=== PATIENT | male | born 1960 | race Two or more races ===

== ENCOUNTER 2019-04-24 13:08 | Emergency (ER) | payer OTHER ==
[~2019-04-24] VITALS: Ht 182.9 cm; Wt 108.9 kg
[2019-04-24 13:39] VITALS: BP 141/77
== END 2019-04-24 18:16 | disposition left against medical advice (07) ==
LOC: ER 13:14
DX: T82.524A Displacement of infusion catheter, initial encounter (principal); R78.81 Bacteremia; M00.9 Pyogenic arthritis, unspecified; Z79.2 Long term (current) use of antibiotics; Z53.29 Procedure and treatment not carried out because of patient's decision for other reasons; Y84.8 Other medical procedures as the cause of abnormal reaction of the patient, or of later complication, without mention of misadventure at the time of the procedure; Y92.89 Other specified places as the place of occurrence of the external cause
CPT/HCPCS: 71045